=== PATIENT | female | born 1970 | race Caucasian/White ===

== ENCOUNTER 2016-08-01 08:02 | Emergency (ER) | payer OTHER ==
[~2016-08-01] VITALS: Ht 172.7 cm; Wt 100.9 kg
[~2016-08-01 08:02] MED LIST: CEPHALEXIN500 M1 PO; CYMBALTA 60MG60 MG PO; DOSTINEX0.5 MG/TAB PO; KLONOPIN 0.5MG0.5 MG PO; LYRICA225 MG PO; MAXALT5 MG PO; NEURONTIN300 MG/CAP PO; NEXPLANON68 MG ID; NORCO 325 MG-7.1 TAB PO; PRILOSEC 20MG20 MG PO; ZESTORETIC 12.51 TA1 PO
[2016-08-01 08:04] VITALS: TEMP 97.7
[2016-08-01 08:49] LABS: BASO % 0.3 % (0.0-2.0); EOS # 0.1 (0.0-0.7); EOS % 0.7 % (0-4.0); GRAN # 9.4 (1.4-6.5); GRAN % 73.3 % (42.2-75.2); HEMATOCRIT 43.8 % (37.0-47.0); HEMOGLOBIN 14.5 g/dl (12.5-16.0); LYMPH # 2.4 (1.2-3.4); LYMPH % 18.9 % (20.0-51.0); MEAN CELL VOLUME 87 fl (80.0-100.0); MEAN CORPUSCULAR HEMOGLOBIN 29 pg (27.0-31.0); MEAN CORPUSCULAR HGB CONC 33 g/dl (33.0-37.0); MEAN PLATELET VOLUME 10.7 fl (7.4-10.4); MONO # 0.8 (0.1-0.6); MONO % 6.5 % (1.7-9.3); PLATELET COUNT 334 K/mm3 (130-400); RED BLOOD COUNT 5.05 M/mm3 (4.10-5.30); REDCELL DISTRIBUTION WIDTH-CV 14.6 % (11.5-14.5); WHITE BLOOD COUNT 12.8 K/mm3 (4.8-10.8)
[2016-08-01 08:54] LABS: PH 6 (5-8); URINE APPEARANCE Hazy; URINE BACTERIA Rare /hpf; URINE BILIRUBIN Negative (NEGATIVE); URINE BLOOD 3+ (NEGATIVE); URINE COLOR Amber; URINE GLUCOSE Negative (NEGATIVE); URINE KETONE Negative (NEGATIVE); URINE RBC >50 /hpf; URINE UROBILINOGEN >=4.0 mg/dL (NEGATIVE); URINE WBC >50 /hpf
[2016-08-01 09:09] LABS: ADJUSTED CALCIUM 9.4 mg/dL (8.4-10.2); ALBUMIN 4.4 gm/dL (3.5-5.0); BILIRUBIN,TOTAL 0.8 mg/dL (0.0-1.0); C-REACTIVE PROTEIN 0.8 mg/dL (0.0-0.9); CALCIUM 9.7 mg/dL (8.4-10.2); CREATININE, serum 0.84 mg/dL (0.52-1.25); POTASSIUM 3.1 mmol/L (3.4-5.0); TOTAL PROTEIN 7.9 gm/dL (6.4-8.2)
[2016-08-01] MEDS ORDERED: CEFTIN 250250 MG/TAB PO (09:55)
[2016-08-01 10:15] VITALS: BP 110/61; PULSE 77
== END 2016-08-01 10:40 | disposition home or self-care (01) ==
LOC: COL.ER 08:02
PROVIDERS: Physician Assistant
DX: N30.80 Other cystitis without hematuria (principal); I10 Essential (primary) hypertension; Z90.49 Acquired absence of other specified parts of digestive tract; E11.9 Type 2 diabetes mellitus without complications
CPT/HCPCS: J0696; J1885; J7030; Q9967

== ENCOUNTER → 2017-04-22 | Outpatient (CLI) | payer OTHER ==
[~2017-04-22] MED LIST changes: +CEFTIN 250250 MG/TAB PO
== END ==
LOC: BHSO 13:48
DX: F33.1 Major depressive disorder, recurrent, moderate (principal)
CPT/HCPCS: 90791-AI

== ENCOUNTER → 2017-05-30 | Outpatient (CLI) | payer OTHER | LOC: BHSO 13:07 | DX: F41.1 Generalized anxiety disorder (principal) ==

== ENCOUNTER → 2017-07-10 | Outpatient (CLI) | payer OTHER | LOC: BHSO 08:40 | DX: F41.1 Generalized anxiety disorder (principal) | CPT/HCPCS: G0463 ==

== ENCOUNTER → 2017-08-11 | Outpatient (CLI) | payer OTHER | LOC: BHSO 08:06 | DX: F33.41 Major depressive disorder, recurrent, in partial remission (principal) | CPT/HCPCS: G0463 ==

== ENCOUNTER → 2017-09-29 | Outpatient (CLI) | payer OTHER | LOC: COL.CARD 08:11 | DX: R00.1 Bradycardia, unspecified (principal) ==

== ENCOUNTER → 2017-11-05 | Outpatient (CLI) | payer OTHER | LOC: BHSO 09:22 | DX: F41.1 Generalized anxiety disorder (principal) | CPT/HCPCS: G0463 ==

== ENCOUNTER → 2018-02-04 | Outpatient (CLI) | payer OTHER | LOC: BHSO 10:17 | DX: F41.1 Generalized anxiety disorder (principal) | CPT/HCPCS: G0463 ==

== ENCOUNTER → 2018-05-06 | Outpatient (CLI) | payer OTHER | LOC: BHSO 10:06 | DX: F41.1 Generalized anxiety disorder (principal) | CPT/HCPCS: G0463 ==

== ENCOUNTER → 2018-06-01 | Emergency (ER) | payer OTHER ==
[~2018-06-01] VITALS: Ht 172.7 cm; Wt 113.6 kg
[~2018-06-01] MED LIST changes: +FLEXERIL 1010 MG/TAB PO; +LAMICTAL 100MG100 MG PO; +LEVAQUIN 2250 MG/TAB PO; +MINIPRESS 1M1 MG/CAP PO; +SINEMET 25/101 UDTAB PO; +SINEQUAN 2525 MG/CAP PO
[2018-06-01 15:45] VITALS: TEMP 97.7
[2018-06-01 16:24] LABS: HEMOGLOBIN 11.3 g/dl (12.5-16.0); MEAN CELL VOLUME 88 fl (80.0-100.0); MEAN CORPUSCULAR HEMOGLOBIN 28 pg (27.0-31.0); MEAN CORPUSCULAR HGB CONC 31 g/dl (33.0-37.0); MEAN PLATELET VOLUME 9.7 fl (7.4-10.4); PLATELET COUNT 247 K/mm3 (130-400); REDCELL DISTRIBUTION WIDTH-CV 13.5 % (11.5-14.5)
[2018-06-01 16:34] LABS: HEMATOCRIT 36.1 % (37.0-47.0)
[2018-06-01 16:46] LABS: ALBUMIN 3.7 gm/dL (3.5-5.0); BILIRUBIN,TOTAL 0.2 mg/dL (0.0-1.0); CALCIUM 9.1 mg/dL (8.4-10.2); CREATININE, serum 0.85 mg/dL (0.52-1.25); MAGNESIUM 1.8 mg/dL (1.6-2.3); POTASSIUM 4.4 mmol/L (3.4-5.0); TOTAL PROTEIN 6.5 gm/dL (6.4-8.2)
[2018-06-01 17:55] VITALS: BP 134/93; PULSE 73
== END ==
LOC: COL.ER 15:39
PROVIDERS: Emergency Medicine
DX: R00.2 Palpitations (principal); G20 Parkinson's disease; F43.10 Post-traumatic stress disorder, unspecified; M79.7 Fibromyalgia; Z90.49 Acquired absence of other specified parts of digestive tract; Z90.89 Acquired absence of other organs; Z90.710 Acquired absence of both cervix and uterus

== ENCOUNTER → 2018-06-22 | Outpatient (CLI) | payer OTHER | LOC: COL.RAD 12:08 | DX: R90.82 White matter disease, unspecified (principal) | CPT/HCPCS: A9585 ==

== ENCOUNTER → 2018-08-21 | Outpatient (CLI) | payer OTHER | LOC: BHSO 08:48 | DX: F33.42 Major depressive disorder, recurrent, in full remission (principal) | CPT/HCPCS: G0463 ==

== ENCOUNTER 2018-12-18 13:26 | Emergency (ER) | payer OTHER ==
[~2018-12-18] VITALS: Ht 172.7 cm; Wt 113.6 kg
[2018-12-18 13:32] VITALS: TEMP 97.5
[2018-12-18 15:38] VITALS: BP 128/91; PULSE 84
== END 2018-12-18 15:41 | disposition home or self-care (01) ==
LOC: COL.ER 13:26
DX: G43.909 Migraine, unspecified, not intractable, without status migrainosus (principal); G20 Parkinson's disease
CPT/HCPCS: J1100; J1200; J1885

== ENCOUNTER → 2019-02-12 | Outpatient (CLI) | payer OTHER | LOC: BHSO 07:49 | DX: F33.41 Major depressive disorder, recurrent, in partial remission (principal) | CPT/HCPCS: G0463 ==

== ENCOUNTER → 2019-05-12 | Outpatient (CLI) | payer OTHER | LOC: BHSO 08:00 | DX: F33.42 Major depressive disorder, recurrent, in full remission (principal) | CPT/HCPCS: G0463 ==

== ENCOUNTER → 2019-10-27 | Outpatient (CLI) | payer SELFPAY | LOC: BHSO 09:20 | DX: F33.42 Major depressive disorder, recurrent, in full remission (principal) | CPT/HCPCS: G0463 ==

== ENCOUNTER 2020-03-31 08:50 | Day surgery (SDC) | payer OTHER ==
[~2020-03-31] VITALS: Ht 172.7 cm; Wt 117.4 kg
[2020-03-31 09:23] VITALS: BP 135/96; PULSE 89; TEMP 98.4
[2020-03-31] MEDS ORDERED: LYRICA 75MG CAP75 MG PO (09:45)
[2020-03-31] MEDS ORDERED: MINIPRESS2 MG PO (09:45)
[2020-03-31] MEDS ORDERED: LYRICA 150MG C150 MG PO (09:46)
[2020-03-31] MEDS ORDERED: ESTRACE 1MG1 MG/TAB PO (09:47)
[2020-03-31] MEDS ORDERED: LAMICTAL150 MG PO ×2 (09:49)
[2020-03-31] MEDS ORDERED: VALTREX 50500 MG/TAB PO (09:52)
[2020-03-31] MEDS ORDERED: RYTARY1 CE2 PO (09:53)
[2020-03-31] MEDS ORDERED: KLONOPIN 1MG1 MG PO (09:54)
[2020-03-31] MEDS ORDERED: ONE-A-DAY ESSE1 EACH PO (09:56)
[2020-03-31 11:00] VITALS: BP 129/71; PULSE 84; TEMP 97.6
[2020-03-31 11:15] VITALS: BP 118/70; PULSE 80
[2020-03-31 11:30] VITALS: BP 130/76; PULSE 71
== END 2020-03-31 12:00 | disposition home or self-care (01) ==
LOC: SDCO 08:50
DX: Z12.11 Encounter for screening for malignant neoplasm of colon (principal); D12.0 Benign neoplasm of cecum; K57.30 Diverticulosis of large intestine without perforation or abscess without bleeding; I10 Essential (primary) hypertension; K21.9 Gastro-esophageal reflux disease without esophagitis; G43.909 Migraine, unspecified, not intractable, without status migrainosus; M79.7 Fibromyalgia; Z90.710 Acquired absence of both cervix and uterus; Z90.49 Acquired absence of other specified parts of digestive tract; Z86.010 Personal history of colon polyps; Z79.52 Long term (current) use of systemic steroids
CPT/HCPCS: J2250; J2704; J3010; J7030

== ENCOUNTER 2020-05-16 10:49 | Outpatient (RCR) | payer OTHER ==
[~2020-05-16 10:49] MED LIST changes: +ESTRACE 1MG1 MG/TAB PO; +KLONOPIN 1MG1 MG PO; +LAMICTAL150 MG PO; +LYRICA 150MG C150 MG PO; +LYRICA 75MG CAP75 MG PO; +MINIPRESS2 MG PO; +ONE-A-DAY ESSE1 EACH PO; +RYTARY1 CE2 PO; +VALTREX 50500 MG/TAB PO
== END 2020-07-24 | disposition home or self-care (01) ==
LOC: WSST
DX: R13.12 Dysphagia, oropharyngeal phase (principal); G20 Parkinson's disease

== ENCOUNTER → 2020-05-23 | Outpatient (CLI) | payer OTHER | LOC: COL.RAD 14:07 | DX: G20 Parkinson's disease (principal); R13.10 Dysphagia, unspecified ==

== ENCOUNTER → 2020-06-27 | Outpatient (CLI) | payer OTHER | LOC: MC.RAD 09:01 | DX: Z12.31 Encounter for screening mammogram for malignant neoplasm of breast (principal) ==

== ENCOUNTER 2020-07-23 19:58 | Emergency (ER) | payer OTHER ==
[~2020-07-23] VITALS: Ht 172.7 cm; Wt 113.6 kg
[2020-07-23 20:02] VITALS: TEMP 96.4
[2020-07-23 20:45] LABS: BASO # 0.1 (0.0-0.2); BASO % 0.4 % (0.0-2.0); EOS # 0.2 (0.0-0.7); EOS % 1.8 % (0-4.0); GRAN % 76.6 % (42.2-75.2); HEMATOCRIT 41.7 % (37.0-47.0); HEMOGLOBIN 13.2 g/dl (12.5-16.0); LYMPH # 1.8 (1.2-3.4); LYMPH % 13.7 % (20.0-51.0); MEAN CELL VOLUME 86 fl (80.0-100.0); MEAN CORPUSCULAR HEMOGLOBIN 27 pg (27.0-31.0); MEAN CORPUSCULAR HGB CONC 32 g/dl (33.0-37.0); MEAN PLATELET VOLUME 10.2 fl (7.4-10.4); MONO # 0.9 (0.1-0.6); MONO % 7.2 % (1.7-9.3); PLATELET COUNT 296 K/mm3 (130-400); RED BLOOD COUNT 4.83 M/mm3 (4.10-5.30); REDCELL DISTRIBUTION WIDTH-CV 13.6 % (11.5-14.5)
[2020-07-23 20:55] LABS: ALBUMIN 4.2 gm/dL (3.5-5.0); BILIRUBIN,TOTAL 0.5 mg/dL (0.0-1.0); C-REACTIVE PROTEIN 5.5 mg/dL (0.0-0.9); CALCIUM 9.7 mg/dL (8.4-10.2); CREATININE, serum 0.75 (0.52-1.25); POTASSIUM 4.2 mmol/L (3.4-5.0); TOTAL PROTEIN 7.4 gm/dL (6.4-8.2)
[2020-07-23 21:41] LABS: COLLECTION METHOD CLEAN CATCH
[2020-07-23 21:47] LABS: MUCOUS Present /lpf; PH 6 (5-8); SQUAMOUS EPITHELIAL 0-2 /hpf; URINE APPEARANCE Clear; URINE BACTERIA None Seen /hpf; URINE BILIRUBIN Negative (NEGATIVE); URINE BLOOD Negative (NEGATIVE); URINE COLOR Yellow; URINE GLUCOSE Negative (NEGATIVE); URINE KETONE Trace (NEGATIVE); URINE LEUKOCYTE ESTERASE Negative (NEGATIVE); URINE NITRATE Negative (NEGATIVE); URINE PROTEIN(semi-quant) Negative (NEGATIVE); URINE RBC 0-2 /hpf; URINE UROBILINOGEN Negative (NEGATIVE)
[2020-07-24 00:12] VITALS: BP 136/79; PULSE 80
== END 2020-07-24 00:16 | disposition home or self-care (01) ==
LOC: COL.ER 19:58
PROVIDERS: Nurse Practitioner
DX: R10.11 Right upper quadrant pain (principal); R10.12 Left upper quadrant pain; R10.33 Periumbilical pain; E66.9 Obesity, unspecified; G20 Parkinson's disease; Z20.822 Contact with and (suspected) exposure to COVID-19; Z90.710 Acquired absence of both cervix and uterus
CPT/HCPCS: J1170; J2405; J7030; Q9967

== ENCOUNTER → 2020-08-10 | Outpatient (CLI) | payer OTHER | LOC: COL.RAD 07:24 | DX: K31.84 Gastroparesis (principal) | CPT/HCPCS: A9541 ==

== ENCOUNTER 2020-09-01 09:10 | Day surgery (SDC) | payer OTHER ==
[~2020-09-01] VITALS: Ht 172.7 cm; Wt 113.6 kg
[~2020-09-01 09:10] MED LIST changes: -LAMICTAL150 MG PO; +LAMICTAL200 MG PO
[2020-09-01] MEDS ORDERED: SINEMET 25/101 UDTAB PO (10:00)
[2020-09-01 10:08] VITALS: BP 120/84; PULSE 94; TEMP 96
[2020-09-01 11:35] VITALS: BP 114/77; PULSE 79; TEMP 97.2
--- NOTE | 2020-09-01 11:35 | NUR ---
Patient arrives back to [facility] alert, denies pain or nausea. Patient ambulates from cart with standby assist without any complications. Patient monitor applied, vitals stable. Patient given applesauce and juice.
[2020-09-01 11:50] VITALS: BP 110/79; PULSE 82
--- NOTE | 2020-09-01 11:50 | NUR ---
Patient tolerated applesauce and juice without any nausea. Vitals stable. Patient reports she feels good and is ready to go home.
[2020-09-01 12:05] VITALS: BP 122/87; PULSE 80
--- NOTE | 2020-09-01 12:15 | NUR ---
Dismissal instructions gone over with patient. Patient voices understanding and all questions answered.
--- NOTE | 2020-09-01 12:20 | NUR ---
Patient dischargd to private vehicle at patient enterance via wheelchair without any complications. Patient leaves thanking staff for services.
== END 2020-09-01 12:20 | disposition home or self-care (01) ==
LOC: SDCO 09:10
DX: E11.43 Type 2 diabetes mellitus with diabetic autonomic (poly)neuropathy (principal); K31.84 Gastroparesis; K21.9 Gastro-esophageal reflux disease without esophagitis; G20 Parkinson's disease; M79.7 Fibromyalgia; Z20.822 Contact with and (suspected) exposure to COVID-19; K76.0 Fatty (change of) liver, not elsewhere classified; K85.90 Acute pancreatitis without necrosis or infection, unspecified; Z79.899 Other long term (current) drug therapy; Z79.84 Long term (current) use of oral hypoglycemic drugs; Z79.890 Hormone replacement therapy
CPT/HCPCS: J2704; J7030

== ENCOUNTER → 2020-10-19 | Outpatient (CLI) | payer OTHER ==
[~2020-10-19] MED LIST changes: +CEFTIN500 MG PO; +PYRIDIUM200 M1 PO
== END ==
LOC: COL.LAB 10:42
DX: Z01.818 Encounter for other preprocedural examination (principal); K31.84 Gastroparesis; Z20.822 Contact with and (suspected) exposure to COVID-19

== ENCOUNTER → 2020-11-02 | Outpatient (CLI) | payer OTHER | LOC: COL.RAD 05:42 | DX: K31.84 Gastroparesis (principal) | CPT/HCPCS: A9541 ==

== ENCOUNTER 2020-12-30 20:07 | Emergency (ER) | payer OTHER ==
[~2020-12-30] VITALS: Ht 172.7 cm; Wt 113.6 kg
[~2020-12-30 20:07] MED LIST changes: -CEFTIN500 MG PO; -PYRIDIUM200 M1 PO
[2020-12-30 20:57] LABS: BASO # 0.1 (0.0-0.2); BASO % 0.6 % (0.0-2.0); EOS # 0.3 (0.0-0.7); EOS % 3.5 % (0-4.0); GRAN # 6.1 (1.4-6.5); GRAN % 63.6 % (42.2-75.2); HEMATOCRIT 42.1 % (37.0-47.0); HEMOGLOBIN 12.8 g/dl (12.5-16.0); LYMPH # 2.3 (1.2-3.4); LYMPH % 24.6 % (20.0-51.0); MEAN CELL VOLUME 89 fl (80.0-100.0); MEAN CORPUSCULAR HEMOGLOBIN 27 pg (27.0-31.0); MEAN CORPUSCULAR HGB CONC 30 g/dl (33.0-37.0); MEAN PLATELET VOLUME 10.9 fl (7.4-10.4); MONO # 0.7 (0.1-0.6); MONO % 7.5 % (1.7-9.3); PLATELET COUNT 333 K/mm3 (130-400); RED BLOOD COUNT 4.71 M/mm3 (4.10-5.30); REDCELL DISTRIBUTION WIDTH-CV 14.6 % (11.5-14.5)
[2020-12-30 20:59] LABS: COLLECTION METHOD CLEAN CATCH
[2020-12-30 21:11] LABS: MUCOUS Present /lpf; PH 5 (5-8); URINE APPEARANCE Turbid; URINE BACTERIA None Seen /hpf; URINE BILIRUBIN Negative (NEGATIVE); URINE BLOOD 3+ (NEGATIVE); URINE CALCIUM OXALATE CRYSTAL Present /hpf; URINE COLOR Amber; URINE GLUCOSE 1+ (NEGATIVE); URINE KETONE Trace (NEGATIVE); URINE LEUKOCYTE ESTERASE 1+ (NEGATIVE); URINE NITRATE Negative (NEGATIVE); URINE PROTEIN(semi-quant) 3+ (NEGATIVE); URINE RBC >50 /hpf; URINE UROBILINOGEN Negative (NEGATIVE)
[2020-12-30 21:12] LABS: ALBUMIN 4.4 gm/dL (3.5-5.0); BILIRUBIN,TOTAL 0.3 mg/dL (0.0-1.0); C-REACTIVE PROTEIN 2.2 mg/dL (0.0-0.9); CALCIUM 9.5 mg/dL (8.4-10.2); CREATININE, serum 1.04 (0.52-1.25); POTASSIUM 4.3 mmol/L (3.4-5.0); TOTAL PROTEIN 7.7 gm/dL (6.4-8.2)
[2020-12-30] MEDS ORDERED: PYRIDIUM200 M1 PO (21:25)
[2020-12-30] MEDS ORDERED: CEFTIN500 MG PO (21:25)
[2020-12-30 21:39] VITALS: BP 134/64; PULSE 74; TEMP 98.7
== END 2020-12-30 21:47 | disposition home or self-care (01) ==
LOC: COL.ER 20:07
PROVIDERS: Emergency Medicine
DX: N30.91 Cystitis, unspecified with hematuria (principal); G20 Parkinson's disease; Z90.710 Acquired absence of both cervix and uterus; Z79.899 Other long term (current) drug therapy
CPT/HCPCS: J0696; J7030

== ENCOUNTER 2021-09-14 04:14 | Emergency (ER) | payer OTHER ==
[~2021-09-14 04:14] MED LIST changes: +CEFTIN500 MG PO; +PYRIDIUM200 M1 PO
[2021-09-14 04:40] VITALS: BP 154/100; PULSE 69; TEMP 98
== END 2021-09-14 05:00 | disposition home or self-care (01) ==
LOC: COL.ER 04:14
DX: M26.602 Left temporomandibular joint disorder, unspecified (principal); G20 Parkinson's disease

== ENCOUNTER → 2022-02-12 | Outpatient (CLI) | payer SELFPAY | LOC: COL.RAD 10:02 | DX: K76.0 Fatty (change of) liver, not elsewhere classified (principal); N30.21 Other chronic cystitis with hematuria ==

== ENCOUNTER 2022-05-23 15:25 | Emergency (ER) | payer OTHER ==
[~2022-05-23] VITALS: Ht 175.3 cm; Wt 104.1 kg
[2022-05-23 15:30] VITALS: BP 148/94; TEMP 97.3
[2022-05-23 17:45] VITALS: PULSE 90
== END 2022-05-23 17:45 | disposition home or self-care (01) ==
LOC: COL.ER 15:25
DX: S20.212A Contusion of left front wall of thorax, initial encounter (principal); W18.2XXA Fall in (into) shower or empty bathtub, initial encounter; W22.8XXA Striking against or struck by other objects, initial encounter

== ENCOUNTER 2023-08-17 00:47 | Emergency (ER) | payer SELFPAY ==
[~2023-08-17] VITALS: Ht 170.2 cm; Wt 69.1 kg
[~2023-08-17 00:47] MED LIST changes: +AMOXICILLIN 8751 TAB PO
[2023-08-17 00:50] VITALS: TEMP 97.2
[2023-08-17] MEDS ORDERED: HYDROmorphone 0.5 MG/0.5 ML SYRINGE IV ONE (01:15)
[2023-08-17] MEDS ORDERED: Ketorolac 15 MG/ML VIAL IV ONE (01:15)
[2023-08-17] MEDS ORDERED: NS 1,000 ML IV ONE (01:15)
[2023-08-17 01:18] LABS: BASO # 0.1 K/mm3 (0.0-0.2); BASO % 0.6 % (0.0-2.0); EOS # 0.3 K/mm3 (0.0-0.7); EOS % 3.2 % (0.0-4.0); GRAN # 4.7 K/mm3 (1.4-6.5); GRAN % 53.6 % (42.2-75.2); HEMATOCRIT 38.7 % (37.0-47.0); HEMOGLOBIN 12.2 g/dl (12.5-16.0); LYMPH # 3.1 K/mm3 (1.2-3.4); LYMPH % 35.4 % (20.0-51.0); MEAN CELL VOLUME 84 fl (80.0-100.0); MEAN CORPUSCULAR HEMOGLOBIN 26 pg (27-31); MEAN CORPUSCULAR HGB CONC 32 g/dl (33.0-37.0); MEAN PLATELET VOLUME 10.6 fl (7.4-10.4); MONO # 0.6 K/mm3 (0.1-0.6); MONO % 7.1 % (1.7-9.3); PLATELET COUNT 300 K/mm3 (130-400); RED BLOOD COUNT 4.62 M/mm3 (4.10-5.30); REDCELL DISTRIBUTION WIDTH-CV 16.7 % (11.5-14.5)
[2023-08-17 01:49] LABS: BILIRUBIN,TOTAL 0.2 mg/dL (0.2-1.2); C-REACTIVE PROTEIN 0.08 mg/dL (0.00-0.50); CALCIUM 9.9 mg/dL (8.4-10.2); CREATININE, serum 1.04 mg/dL (0.57-1.11); POTASSIUM 3.8 mmol/L (3.5-4.5)
[2023-08-17] MEDS ORDERED: Iohexol 300 - 100 ML VIAL IV ONE (01:52)
[2023-08-17] MEDS ORDERED: NS 64 ML IV SCH (01:52)
[2023-08-17 02:42] LABS: COLLECTION METHOD CLEAN CATCH
[2023-08-17 03:08] LABS: PH 5.5 (5.0-8.5); URINE APPEARANCE Clear (CLEAR/HAZY); URINE BLOOD Negative (NEGATIVE); URINE COLOR Yellow (YELLOW); URINE GLUCOSE Negative (NEGATIVE); URINE KETONE TRACE (NEGATIVE); URINE NITRATE Negative (NEGATIVE); URINE PROTEIN(semi-quant) Negative (NEGATIVE); URINE UROBILINOGEN 0.2 E.U/dL (0.2-1.0)
[2023-08-17] MEDS ORDERED: PERCOCET 325 MG1 TA2 PO (03:15)
[2023-08-17] MEDS ORDERED: Home oxyCODONE/Acetaminophen 5/325 MG #4 TAB/PACK PO ONE (03:15)
[2023-08-17 03:19] LABS: MUCOUS Present (NOT PRESENT); URINE BACTERIA Rare /hpf (NONE SEEN)
[2023-08-17 03:28] VITALS: BP 137/81; PULSE 77
== END 2023-08-17 03:31 | disposition home or self-care (01) ==
LOC: COL.ER 00:47
PROVIDERS: Nurse Practitioner
DX: N20.2 Calculus of kidney with calculus of ureter (principal); Z87.19 Personal history of other diseases of the digestive system; Z90.49 Acquired absence of other specified parts of digestive tract
CPT/HCPCS: J1170; J1885; J7030; Q9967

== ENCOUNTER 2024-04-11 14:32 | Emergency (ER) | payer OTHER ==
[~2024-04-11] VITALS: Ht 170.2 cm; Wt 68.2 kg
[~2024-04-11 14:32] MED LIST changes: +PERCOCET 325 MG1 TA2 PO; +SINEMET CR 50 M1 TER PO
[2024-04-11 14:39] VITALS: TEMP 95.2
[2024-04-11 15:26] LABS: COLLECTION METHOD CLEAN CATCH
[2024-04-11] MEDS ORDERED: Ketorolac 15 MG/ML VIAL IV ONE (15:30)
[2024-04-11] MEDS ORDERED: cefTRIAXone 2 G in Water For Injection,Sterile 20 ML IV ONE (15:30)
[2024-04-11] MEDS ORDERED: NS 1,000 ML IV ONE (15:30)
[2024-04-11 15:32] LABS: BASO # 0.1 K/mm3 (0.0-0.2); BASO % 0.7 % (0.0-2.0); EOS # 0.3 K/mm3 (0.0-0.7); EOS % 2.8 % (0.0-4.0); GRAN # 5.3 K/mm3 (1.4-6.5); GRAN % 59.9 % (42.2-75.2); HEMATOCRIT 39.4 % (37.0-47.0); HEMOGLOBIN 11.8 g/dl (12.5-16.0); LYMPH # 2.6 K/mm3 (1.2-3.4); LYMPH % 29.2 % (20.0-51.0); MEAN CELL VOLUME 84 fl (80.0-100.0); MEAN CORPUSCULAR HEMOGLOBIN 25 pg (27-31); MEAN CORPUSCULAR HGB CONC 30 g/dl (33.0-37.0); MEAN PLATELET VOLUME 10.1 fl (7.4-10.4); MONO # 0.6 K/mm3 (0.1-0.6); MONO % 6.9 % (1.7-9.3); PLATELET COUNT 352 K/mm3 (130-400); REDCELL DISTRIBUTION WIDTH-CV 16.1 % (11.5-14.5)
[2024-04-11 15:45] LABS: URINE APPEARANCE CLOUDY (CLEAR/HAZY); URINE BLOOD 3+ (NEGATIVE); URINE COLOR Dark Yellow (YELLOW); URINE GLUCOSE NEGATIVE (NEGATIVE); URINE KETONE TRACE (NEGATIVE); URINE NITRATE POSITIVE (NEGATIVE); URINE PROTEIN(semi-quant) 3+ (NEGATIVE)
[2024-04-11 15:51] LABS: BILIRUBIN,TOTAL 0.3 mg/dL (0.2-1.2); CALCIUM 9.7 mg/dL (8.4-10.2); CREATININE, serum 0.81 mg/dL (0.57-1.11); TOTAL PROTEIN 7.3 g/dl (6.2-8.1)
[2024-04-11] MEDS ORDERED: AMOXICILLIN 8751 TAB PO (16:47)
[2024-04-11 17:08] VITALS: BP 132/92; PULSE 55
== END 2024-04-11 17:08 | disposition home or self-care (01) ==
LOC: COL.ER 14:32
PROVIDERS: Family Medicine
DX: N39.0 Urinary tract infection, site not specified (principal); Z96.0 Presence of urogenital implants
CPT/HCPCS: J0696; J1885; J7030